=== PATIENT | female | born 1960 | race Caucasian/White ===

== ENCOUNTER 2020-05-07 08:03 | Outpatient (CLI) | payer MEDICAID, SELFPAY ==
[2020-05-07 08:30] VITALS: PULSE 74; O2SAT 96
[2020-05-07 08:35] VITALS: PULSE 95; O2SAT 86
[2020-05-07 08:40] VITALS: PULSE 92; O2SAT 88
[2020-05-07 08:45] VITALS: PULSE 75; O2SAT 90
[2020-05-07 08:50] VITALS: PULSE 72; O2SAT 95
--- NOTE | 2020-05-07 09:10 | HOMEO2EVAL ---
Home Oxygen Evaluation RC: Home Oxygen (O2) Evaluation Start: 05/07/20 09:00 Freq: ONCE Status: Active Protocol: RPE Activity Type Activity Date Activity User E-Sign Co-Sign Detail Recorded Client Recorded Date Recorded By Document 05/07/20 08:30 [email or web address] [email or web address] 05/07/20 09:07 DJO Document 05/07/20 08:35 [email or web address] [email or web address] 05/07/20 09:07 DJO Document 05/07/20 08:40 [email or web address] [email or web address] 05/07/20 09:07 DJO Document 05/07/20 08:45 [email or web address] [email or web address] 05/07/20 09:07 DJO Document 05/07/20 08:50 [email or web address] [email or web address] 05/07/20 09:07 DJO 05/07/20 05/07/20 05/07/20 08:30 08:35 08:40 Home O2 Evaluation Test Phase Resting Exercise Exercise Oxygen Delivery Room Air Room Air Nasal Cannula Oxygen Flow Rate (L/min) 1 Pulse Oximetry (90-100 %) 96 86 L 88 L Pulse Rate (60-100 beats/min) 74 95 92 Rating of Perceived Dyspnea (PD) +3 Moderate Difficulty, But Can Continue Ambulation Distance (feet) 1,300 Treatment Charges O2 Evaluation 05/07/20 05/07/20 08:45 08:50 Home O2 Evaluation Test Phase Exercise Resting Oxygen Delivery Nasal Cannula Room Air Oxygen Flow Rate (L/min) 2 Pulse Oximetry (90-100 %) 90 95 Pulse Rate (60-100 beats/min) 75 72 Rating of Perceived Dyspnea (PD) Ambulation Distance (feet) Treatment Charges
== END 2020-05-07 08:04 | disposition home or self-care (01) ==
PROVIDERS: Visit Provider Nurse Practitioner Family
DX: J44.9 Chronic obstructive pulmonary disease, unspecified (principal); R06.02 Shortness of breath
CPT/HCPCS: 99199; 94618

== ENCOUNTER 2020-06-11 09:01 | Outpatient (CLI) | payer MEDICARE, SELFPAY ==
--- NOTE | ~2020-06-11 | CT_ITS ---
EXAMINATION:CT lung screening DATE: 06/11/2020 09:31 INDICATION: Personal history of tobacco dependence. Smoker who quit 11.5 years ago with 60 pack year history. TECHNIQUE: Computed tomography (CT) of the chest was performed without intravenous contrast. Automate d exposure control and iterative reconstruction technique were employed. The dose-length product (DLP ) was 70.09 mGy-cm. COMPARISON: Chest CT 05/16/2019 FINDINGS: There is moderate emphysema. There is mild atelectasis in left upper lobe and left lower lo be and right upper lobe. No pleural effusion. The heart size is normal. There are coronary artery eric cifications. No pericardial effusion. There is mild thoracic spondylosis. IMPRESSION: 1. Lung-RADS category 1: Negative. Continue annual screening with noncontrast low-dose chest CT in 12 months. Reviewed, dictated and finalized at location B. IMPRESSION: 1. Lung-RADS category 1: Negative. Continue annual screening with noncontrast l ow-dose chest CT in 12 months.
== END 2020-06-11 09:02 | disposition home or self-care (01) ==
PROVIDERS: Visit Provider Nurse Practitioner Family
DX: Z12.2 Encounter for screening for malignant neoplasm of respiratory organs (principal); Z87.891 Personal history of nicotine dependence
CPT/HCPCS: G0297

== ENCOUNTER 2020-12-31 08:54 | Outpatient (CLI) | payer MEDICARE, MEDICAID, SELFPAY ==
--- NOTE | 2020-12-31 | EST_ITS ---
Patient Info Name: Suzanna Fofana Age: 60 years : 1960 Gender: Female Ht: 64 in Wt: 140 lbs BSA: 1.70 m2 Exam Date: 12/31/2020 10:10 AM Exam Location: [facility] Stress Patient Status: Outpatient Admit Date: 12/31/2020 Staff Ordering Physician: Valentina Coe MD Attending Provider: Valentina Coe MD Exercise Technologist: Tressa Day RDCS Exercise Physician: Wilner Fernando DO Exam Type: CA stress rebecca w NM Study Info Indications R06.02 - Shortness of breath A regadenoson stress test was performed. Summary 1. 1. Negative lexiscan stress test for ischemic ST changes by ECG criteria. 2. 2. Stable hemodynamics throughout the test. 3. 3. Nuclear scan to follow and will be reported separately. Please correlate with it. 4. 4. Patient informed of the above results. Protocol: Lexiscan Stress ECG Details Stage: REST Duration (min): 5 min : 15 sec HR (bpm): 82 SBP (mmHg): 123 DBP (mmHg): 78 Stage: REST Duration (min): 15 min : 5 sec HR (bpm): 80 SBP (mmHg): 123 DBP (mmHg): 78 Stage: STAGE 1 Duration (min): 0 min : 59 sec HR (bpm): 107 SBP (mmHg): 147 DBP (mmHg): 88 Stage: RECOVERY Duration (min): 1 min : 0 sec HR (bpm): 115 SBP (mmHg): 186 DBP (mmHg): 88 Stage: RECOVERY Duration (min): 2 min : 0 sec HR (bpm): 113 SBP (mmHg): 186 DBP (mmHg): 88 Stage: RECOVERY Duration (min): 3 min : 0 sec HR (bpm): 109 SBP (mmHg): 161 DBP (mmHg): 86 Stage: RECOVERY Duration (min): 4 min : 0 sec HR (bpm): 100 SBP (mmHg): 161 DBP (mmHg): 86 Stage: RECOVERY Duration (min): 5 min : 0 sec HR (bpm): 93 SBP (mmHg): 141 DBP (mmHg): 82 Stage: RECOVERY Duration (min): 6 min : 0 sec HR (bpm): 88 SBP (mmHg): 141 DBP (mmHg): 82 Stage: RECOVERY Duration (min): 6 min : 50 sec HR (bpm): 93 SBP (mmHg): 141 DBP (mmHg): 83 Rest HR: 80 bpm Peak HR: 117 bpm Rest Sys BP: 123 mmHg Peak Sys BP: 186 mmHg Max Pred HR: 158 bpm % Max Pred HR: 74 % Target HR: 134 bpm Max RPP: 21,762 bpm*mmHg Termination Reason: Completed protocol Cardiac Symptoms: Shortness of breath, Nausea Total Time: 1 min : 0 sec Rest Shultz BP: 78 mmHg Peak Shultz BP: 88 mmHg Total Dose: 0.4 mg Aminophylline Dose: 100 mg Resting ECG Sinus rhythm. Stress ECG No ST changes. Due to intolerable side effects of sob and nausea, patient was given Aminophylline 100 mg IV to reverse its effect. Patient felt better immediately. Arrhythmias None. Report Signatures
--- NOTE | ~2020-12-31 | NM_ITS ---
EXAMINATION: NM rebecca stress w perfusion DATE: 12/31/2020 12:33 INDICATION: Shortness of breath TECHNIQUE: Rest images were obtained following intravenous administration of 9.7 mCi Tc99m tetrofosmi n (Myoview). The patient was infused intravenously with Lexiscan (Regadenoson). Then, 30.2 mCi Tc99m tetrofosmin (Myoview) was administered intravenously, and stress images were obtained. Data was recon structed into short axis and horizontal and vertical long axis SPECT images. Gated SPECT images were also obtained. COMPARISON: None. FINDINGS: There is no definite reversible or fixed perfusion abnormality to suggest ischemia or infar ction. There is normal left ventricular chamber size, wall motion and ejection fraction. Left ventr icular ejection fraction measures 67%. IMPRESSION: 1. Normal myocardial perfusion at rest and during stress. 2. Left ventricular ejection fraction measuring 67%. Reviewed, dictated and finalized at location B.
== END 2020-12-31 08:55 | disposition home or self-care (01) ==
LOC: ANHCARD 08:59
PROVIDERS: Visit Provider Internal Medicine Critical Care Medicine
DX: J44.9 Chronic obstructive pulmonary disease, unspecified (principal); R06.02 Shortness of breath
CPT/HCPCS: 78452; 93017; A9502; J0280; J2785

== ENCOUNTER 2021-01-09 12:35 | Outpatient (CLI) | payer MEDICARE, MEDICAID, SELFPAY ==
--- NOTE | 2021-01-10 09:48 | WPDPFTINT ---
PFT Interpretation This PFT met all criteria for ATS standards and reproducibility FEV/FVC post bronchodilator 28% FEV1 24% or 0.58 liters FVC 66% or 2.05 liters No bronchodilator challenge was given TLC 141% RV 250% RV/TLC 71% DLCO 30% when adjusted for alveolar volume but not adjusted for hemoglobin Flow volume loops showed severe expiratory coving Impression: very severe airflow obstruction along with hyperinflation, air trapping and severely reduced diffusion capacity. The lack of bronchodilator challenge limits the interpretability of the this study. this pattern is suggestive of severe COPD but cannot rule out a concomitant asthma component. Clinical correlation is advised.
--- NOTE | 2021-01-10 09:51 | WPDSIXMINUTE ---
Six Minute Walk Six Minute Walk: The patients O2 sats started at 96% on her home dose of 2 liters oxygen and dropped as low as 92% Total walk distance 335.28 meters conclusion: 2 liters of oxygen per nasal cannula at rest, sleep and exertion is an appropriate dose for this patient.
== END 2021-01-09 12:36 | disposition home or self-care (01) ==
LOC: ANHPFT 12:37
PROVIDERS: Visit Provider Internal Medicine Critical Care Medicine
DX: J44.9 Chronic obstructive pulmonary disease, unspecified (principal)
CPT/HCPCS: 94375; 94618; 94726; 94729

== ENCOUNTER 2021-05-07 09:30 | Outpatient (RCR) | payer MEDICARE, MEDICAID, SELFPAY ==
--- NOTE | 2021-01-29 08:36 | PCCPR ---
Pt cxl rehab today due to not feeling well.
--- NOTE | 2021-03-15 14:48 | PCCPR ---
Heather absent today, not feeling well.
--- NOTE | 2021-03-22 11:42 | PCCPR ---
Absent Heather mary states she has been diarrhea and will not be in today.
--- NOTE | 2021-04-05 11:27 | PCCPR ---
Suzanna Patel absent today due to extreme heat.
--- NOTE | 2021-04-26 09:58 | PCCPR ---
Absent Suzanna Patel called off not feeling well today. She is feeling lightheaded and dizzy wehn she moves her head.
== END 2021-05-07 23:59 | disposition home or self-care (01) ==
LOC: ANHCPREHAB 09:30
PROVIDERS: Visit Provider Internal Medicine Critical Care Medicine
DX: J44.9 Chronic obstructive pulmonary disease, unspecified (principal)
CPT/HCPCS: 97150; G0424

== ENCOUNTER 2021-05-10 09:34 | Outpatient (RCR) | payer MEDICARE, MEDICAID, SELFPAY | END 2021-05-10 16:30 | disposition home or self-care (01) | LOC: ANHCPREHAB 09:34 | PROVIDERS: Visit Provider Internal Medicine Critical Care Medicine | DX: J44.9 Chronic obstructive pulmonary disease, unspecified (principal) | CPT/HCPCS: 97150; G0424 ==

== ENCOUNTER 2021-06-26 08:28 | Outpatient (CLI) | payer MEDICARE, MEDICAID, SELFPAY ==
--- NOTE | 2021-06-29 23:11 | WPDSIXMINUTE ---
Six Minute Walk Procedure Procedure Performed Pulmonary Stress Test (6 min walk) Six Minute Walk Six Minute Walk: DOS: 06/26/2021 REQUESTING: Dr Coe REASON FOR TESTING : COPD; post cardiopulmonary rehab. SIX MINUTE WALK This test was conducted per ATS guidelines. The patient performed this walk study wearing oxygen at 2 L/min which is her usual home amount. The initial saturation is 99%. The pulse is 78. The patient walked for 6 minutes without stopping. Saturation remained 98% to 100%. Pulse ranged from 78 to 95 beats per minute. Distance walked was 365.7 meters, 1200 feet. This is 30 meters more than she walked on a Six Minute Walk on January 09, 2021. IMPRESSION: This study shows that she walked 30 meters more compared to the Six Minute Walk before cardiopulmonary rehab. Saturation is 99% on 2 L/min. Consider repeat testing off supplemental O2.
== END 2021-06-26 08:29 | disposition home or self-care (01) ==
PROVIDERS: Visit Provider Internal Medicine Critical Care Medicine
DX: J44.9 Chronic obstructive pulmonary disease, unspecified (principal); R06.02 Shortness of breath
CPT/HCPCS: 94618

== ENCOUNTER 2021-07-10 17:45 | Inpatient (IN) | payer MEDICARE, MEDICAID, SELFPAY ==
[2021-07-10] VITALS (15 sets, daily range): BP systolic 100–140; BP diastolic 83–95; PULSE 103–160; RESP 17–40; TEMP 36–36.6; O2SAT 92–100; BMI 23.5
--- NOTE | ~2021-07-10 | CT_ITS ---
EXAMINATION: CTA chest PE protocol EXAM DATE: 07/11/2021 08:20 INDICATION: Tachycardia, shortness of breath. TECHNIQUE: Spiral CTA of the chest (pulmonary arteries) was performed with 100 cc Omnipaque 350 intr avenous contrast injection. Images were acquired during the pulmonary arterial phase. Coronal maxi mum intensity projection 3D-reconstructions were created by the technologist on dedicated workstation . Axial, coronal and sagittal reformatted images were reviewed. The dose-length product (DLP) for t his examination was 257.42 mGy-cm. The exposure was tailored according to patient size (auto mA exp osure control), and iterative reconstruction (ASIR) was used as additional dose reduction technique. Comparison is made to prior examination from 06/11/2020. FINDINGS: Pulmonary arteries are well opacified and without intraluminal filling defects. No thora cic aortic dissection. There is moderate emphysema. There are no pleural or pericardial effusions. Tracheobronchial tree is patent. There is no mediastinal, hilar or axillary lymphadenopathy. Th ere is no pneumothorax. Heart normal in size. There is mild coronary arterial calcification, darlin rial sclerosis. Upper abdomen is unremarkable. There is thoracic spondylosis without osteoblastic or osteolytic lesions identified. IMPRESSION: 1. No pulmonary emboli or acute cardiopulmonary findings. 2. Moderate chronic emphysema. Reviewed, dictated and finalized at location B.
--- NOTE | ~2021-07-10 | XR_ITS ---
XR chest 1V portable DATE: 07/10/2021 18:15 INDICATION: Shortness of breath, cough. History of COPD. Smoker. TECHNIQUE: Portable upright AP view on 06/20/2021 at 1812 hours COMPARISON: 06/11/2020 CT lung screening FINDINGS: Bilateral hyperinflation, consistent with history of COPD. No pulmonary infiltrate or conso lidation, pleural effusion or pulmonary vascular congestion or pneumothorax. Normal heart size. Diffuse osteopenia. IMPRESSION: Bilateral hyperinflation consistent with COPD Reviewed, dictated and finalized at location A.
--- NOTE | ~2021-07-10 | XR_ITS ---
EXAMINATION: XR chest 1V portable EXAM DATE: 07/12/2021 09:55 INDICATION: Dyspnea. TECHNIQUE: Portable AP frontal chest x-ray was obtained. Comparison is made to prior examination from 07/10/2021. FINDINGS: The lungs are hyperinflated which can be seen with chronic obstructive pulmonary disease (a clinical diagnosis of functional impairment), but is not diagnostic of it. No confluent consolidatio n, pneumothorax or pleural effusion suspected. Cardiomediastinal silhouette is normal. There are no osseous abnormalities identified. IMPRESSION: Hyperinflation unchanged. Reviewed, dictated and finalized at location B. IMPRESSION: Hyperinflation unchanged.
[2021-07-10] MEDS: ALBUTEROL SULFATE NEB 2.5 MG/0.5 ML INH 15 MG INHALATION (18:05)
--- NOTE | 2021-07-10 18:05 | ECG_ITS ---
Measurements Intervals [place] Rate: 143 P: 70 HI: 128 QRS: 71 QRSD: 82 T: 70 QT: 288 QTc: 445 Interpretive Statements SINUS OR ECTOPIC ATRIAL TACHYCARDIA BASELINE ARTIFACT- I, II, III, AVR, AVL, AVF, V1-V6 ABNORMAL ECG Electronically Signed On 07-10-2021 20:04:03 CDT by Wilner Fernando D.O.
--- NOTE | 2021-07-10 18:06 | ECG_ITS ---
Measurements Intervals [place] Rate: 146 P: 74 NH: 115 QRS: 76 QRSD: 84 T: 83 QT: 291 QTc: 454 Interpretive Statements SINUS OR ECTOPIC ATRIAL TACHYCARDIA BASELINE ARTIFACT- I, II, III, AVR, AVL, AVF, V1-V6 ABNORMAL ECG Electronically Signed On 07-10-2021 20:03:04 CDT by Wilner Fernando D.O.
[2021-07-10 18:38] LABS: Basophils Percent Auto 0.2 % (0.2-1.2); Eosinophils Absolute Auto 0.1 K/mm3 (0-0.3); Eosinophils Percent Auto 0.6 % (0-4.4); Hematocrit 41.3 % (37.0-47.0); Immature Granulocyte Absolute 0.02 K/mm3 (0.00-0.031); Immature Granulocyte Percent A 0.2 % (0-0.5); Lymphocytes Absolute Auto 2.59 K/mm3 (0.9-3.2); Lymphocytes Percent Auto 30.3 % (18.3-44.2); Mean Corpuscular HGB Conc 33.9 g/dl (32-36); Mean Corpuscular Hemoglobin 32.3 pg (26-34); Mean Corpuscular Volume 95.4 fl (80-100); Mean Platelet Volume 8.7 fl (7.4-10.4); Monocytes Absolute Auto 0.5 K/mm3 (0.1-0.6); Neutrophils Absolute Auto 5.4 K/mm3 (1.3-6.7); Neutrophils Percent Auto 62.7 % (45.5-73.1); Platelet Count Result 342 k/mm3 (150-375); Red Blood Count 4.33 M/mm3 (4.2-5.4); Red Cell Distribution Width 12.1 % (11.5-14.5); White Blood Count 8.5 K/mm3 (4.5-10.0)
[2021-07-10 18:40] LABS: Anion Gap 13 mmol/L (8-16); Blood Urea Nitrogen 12 mg/dL (7-17); Calcium 8.9 mg/dL (8.4-10.2); Carbon Dioxide 22 mmol/L (22-30); Chloride 99 mmol/L (98-107); Estimated CRCL calculation 71 ml/min; Estimated Glomerular Filt Rate > 60; Glucose 290 mg/dL (65-110); Potassium 4.1 mmol/L (3.4-5.0); Sodium 134 mmol/L (137-145)
[2021-07-10 18:53] LABS: NT Pro B Type Natriuretic Pept 130 pg/mL (5-100); Troponin I < 0.012 ng/mL (0.000-0.034)
--- NOTE | 2021-07-10 19:16 | ECG_ITS ---
Measurements Intervals [place] Rate: 136 P: ID: 0 QRS: -19 QRSD: 85 T: 91 QT: 303 QTc: 457 Interpretive Statements SINUS TACHYCARDIA BORDERLINE R WAVE PROGRESSION, ANTERIOR LEADS BORDERLINE ST-T WAVE ABNORMALITY- HIGH LATERAL LEADS BASELINE ARTIFACT- I, II, III, AVR, AVL, AVF, V1-V6 ABNORMAL ECG Electronically Signed On 07-17-2021 13:12:06 CDT by Wilner Fernando D.O.
[2021-07-10] MEDS: IPRATROPIUM BR 0.02% INH SOLN 0.5 MG/2.5 ML VIAL INHALATION (19:17)
--- NOTE | 2021-07-10 20:49 | ED.SOB ---
HPI - SOB/Dyspnea General Chief Complaint: Shortness of Breath/Dyspnea Stated Complaint: DIFFICULTY BREATHING Time Seen by Provider: 07/10/21 17:56 Source: patient Mode of arrival: EMS Limitations: clinical condition History of Present Illness HPI Narrative: 60-year-old female History of COPD Use home oxygen 1 day history of increased dyspnea She denies a fever she denies a cough She is not having any chest pain She is used her nebulizers at home without relief Related Data Home Medications Medication Instructions Recorded Confirmed ascorbate calcium (vitamin C) 500 500 mg PO DAILY 11/21/20 04/09/21 mg tablet Allergies Allergy/AdvReac Type Severity Reaction Status Date / Time No Known Allergies Allergy Verified 07/10/21 18:07 Review of Systems Review of Systems: ROS unobtainable: Yes unobtainable due to medical condition Constitutional: Constitutional: Denies fever(s) Cardiovascular: Cardiovascular: Denies chest pain Respiratory: Respiratory: Reports dyspnea and Reports wheezing Gastrointestinal: Gastrointestinal: Denies vomiting [facility] Past Medical History Medical History Family history of early CAD History of tobacco use Laryngitis Family History Family History Father Family history of cardiovascular disease Acute myocardial infarction, Onset Age: 60 Sibling Family history of cardiovascular disease Acute myocardial infarction, Onset Age: 44 Cerebrovascular accident Diabetes mellitus Mother Family history of malignant neoplasm Family history of malignant neoplasm of breast in first degree relative, Onset Age: 74 Cerebrovascular accident Social History Social History Smoking packs per day: 1.5 Smoking cigarettes per day: 30.0 Years smoked: 30 Smoking pack-years: 45.00 Smoking status: Former smoker Tobacco type: cigarettes Second hand tobacco smoke exposure: No Smoking end date: 10/19/08 Alcohol intake: current Gender identity (if verbalized by the patient): Female Exam Const: General: cooperative, alert and ill appearing Nutritional Appearance: thin Orientation/consciousness: patient oriented x3 (alert) HENMT: Head: normal to inspection, normocephalic and atraumatic Ears: external ears normal General nose exam: no epistaxis Eyes: Conjunctivae: conjunctivae normal EOM: EOMs intact bilaterally Neck: Neck: normal visual inspection, supple and no JVD Resp: Effort & Inspection: labored and tachypneic Auscultation: no rales, no rhonchi, no wheezes and other (BS =) Other: Breath sounds are diminished throughout both lungs with some wheezes Cardio: Rate: tachycardic Rhythm: regular rhythm Heart sounds: no murmurs GI: GI Palp: Yes Soft to palpation and No Tenderness to palpation present (GI) Skin: General skin exam: normal color and no rashes or lesions noted Neuro: General: patient oriented x3 (alert) and moves all extremities Speech: normal speech Extrem: General: normal to inspection and no pedal edema Psych: Affect: Anxious affect present Course Course Emergency Course: She responded well to hour-long nebulizer and steroids and fluids Much less tachycardic with a heart rate in the 110s, sats 100% on 2 L Discussed with hospitalist for admission, ordered ABG for them Vital Signs Vital signs: Vital Signs Temperature 36.0 C L 07/10/21 17:46 Pulse Rate 160 H 07/10/21 17:46 Respiratory Rate 40 H 07/10/21 17:46 Blood Pressure 140/88 07/10/21 17:46 Pulse Oximetry 92 07/10/21 17:46 Temperature 36.0 C L 07/10/21 17:46 Pulse Rate 130 H 07/10/21 20:06 Respiratory Rate 27 H 07/10/21 20:06 Blood Pressure 104/84 07/10/21 20:06 Pulse Oximetry 98 07/10/21 20:06 MDM - SOB/Dyspnea Lab Data Result diagrams: 07/10/21 18:18
[2021-07-10] MEDS: LACTATED RINGERS 1,000 ML 999 ML IV CONT (21:15)
[2021-07-10 21:29] LABS: Alveolar/Arterial O2 Gradient 65.8 mmHg; Base Excess ABG -2.7 mEq/l (+/-2.0); Device NASAL CANNULA; Fractional Inspired Oxygen 28 %; HCO3 ABG 21.3 mEq/l (22.0-26.0); Modified Allen's Test Pass; Oxygen Content ABG 18.3 %vol (16.0-22.0); Oxygen Saturation ABG 97.2 % (95.0-100.0); Oxyhemoglobin 96.1 % THb (90.0-100.0); PCO2 ABG 34.8 mmHg (35.0-45.0); PO2 ABG 92.8 mmHg (80.0-100.0); PO2 FiO2 Ratio Arterial Blood 3.31 %; Site Drawn RIGHT RADIAL; Total Hemoglobin 13.5 g/dL (12.0-18.0); pH ABG 7.405 (7.350-7.450)
--- NOTE | 2021-07-10 23:15 | ADMGEN ---
This patient, Suzanna Fofana, was admitted to [facility] Surg Room 301-01. Patient/family oriented to hospital policies and general routines including ID bracelet, bed and alarms, visiting hours, pain management, procedures, bathroom and other care routines, personal items, smoking policy, room service/diet, and visiting hours. Information on how to activate the Rapid Response Team has been discussed. Patient/Family are encouraged to report perceived risks to care and to ask questions if they do not understand what they are told or what they should do.
[2021-07-11] VITALS (19 sets, daily range): BP systolic 87–116; BP diastolic 60–85; PULSE 87–128; RESP 12–28; TEMP 35.8–36.9; O2SAT 94–100
[2021-07-11] MEDS: IPRATROPIUM BR 0.02% INH SOLN 0.5 MG/2.5 ML VIAL INHALATION ×2 (00:06→20:23)
[2021-07-11] MEDS: ALBUTEROL SULFATE NEB 2.5 MG/0.5 ML INH 5 MG INHALATION (00:06)
[2021-07-11] MEDS: LORazepam (*CRX) 0.5 MG TABLET PO ×2 (00:13→06:06)
--- NOTE | 2021-07-11 00:57 | PM.IMHP ---
H&P: HPI History of Present Illness Date/Time: 07/11/21 00:57 Chief Complaint: shortness of breath Narrative: 60-year-old femaleWith history of COPD on home oxygen 2 L continuous presents increasing shortness of breath since past few days. She denies any cough or fever. She also has no chest pain. She has been using her nebulizer at home without relief. after being admitted rapid response was called due to increased shortness of breath and distress after she got up to go to the commode. He got stabilized after getting a breathing treatment. He denied at any chest pain during that period. She had a Lexiscan done 12/2020 which was negative. PFT with very severe airflow obstruction along with hyperinflation, air trapping and severely reduced diffusion capacity suggestive of severe COPD. Done in 12/2020. She has COVID vaccinated Review of Systems Review of Systems: - CONSTITUTIONAL: Denies weight loss, fever and chills. - HEENT: Denies changes in vision and hearing - RESPIRATORY: reports SOB and denies cough. - CV: Denies palpitations and CP. - GI: Denies abdominal pain, nausea, vomiting and diarrhea. - : Denies dysuria and urinary frequency. - MSK: Denies myalgia and joint pain. - SKIN: Denies rash and pruritus. - NEUROLOGICAL: Denies headache and syncope. - PSYCHIATRIC: Denies recent changes in mood. Denies anxiety and depression. All systems reviewed & are unremarkable except as noted in HPI and below Constitutional: Constitutional: Reports fatigue and Reports weakness Neurologic: Reports weakness Endocrine: Endocrine: Reports fatigue [facility] Past Medical History Medical History Family history of early CAD History of tobacco use Laryngitis Family History Family History Father Family history of cardiovascular disease Acute myocardial infarction, Onset Age: 60 Sibling Family history of cardiovascular disease Acute myocardial infarction, Onset Age: 44 Cerebrovascular accident Diabetes mellitus Mother Family history of malignant neoplasm Family history of malignant neoplasm of breast in first degree relative, Onset Age: 74 Cerebrovascular accident Social History Social History Smoking packs per day: 2 Smoking cigarettes per day: 40.0 Years smoked: 33 Smoking pack-years: 66.00 Smoking status: Former smoker Tobacco type: cigarettes Second hand tobacco smoke exposure: No Smoking end date: 10/19/08 Alcohol intake: current Drinks per week: 4 Substance use type: does not use Gender identity (if verbalized by the patient): Female Spiritual care concerns: No Meds Home Medications and Allergies Home Medications Medication Instructions Recorded Confirmed Type tiotropium bromide 2.5 2 puff INHALATION QAM #4 g 11/27/20 07/10/21 Rx mcg/actuation mist for inhalation budesonide-formoterol HFA 80 2 puff INHALATION Q12H #10.2 gm 12/19/20 07/10/21 Rx mcg-4.5 mcg/actuation aerosol inhaler albuterol sulfate 2.5 mg INHALATION QID PRN #360 ml 04/09/21 07/10/21 Rx fluoxetine 40 mg PO DAILY 07/10/21 07/10/21 History efhwneam-mdc-pcz C-herb no.124 4 tablet PO DAILY 07/10/21 07/10/21 History [Airborne Gummy] Allergies Allergy/AdvReac Type Severity Reaction Status Date / Time No Known Allergies Allergy Verified 07/10/21 18:07 Vital Signs Vital Signs - 24 hr 07/10/21 17:46 07/10/21 18:01 07/10/21 18:03 Temperature 96.8 F L Pulse Rate 160 H 145 H Respiratory Rate 40 H Blood Pressure 140/88 Pulse Oximetry 92 96 07/10/21 18:12 07/10/21 18:37 07/10/21 19:12 Temperature Pulse Rate 137 H 134 H 137 H Respiratory Rate 28 H 24 H 17 Blood Pressure 100/83 111/84 Pulse Oximetry 100 97 07/10/21 19:17 07/10/21 19:18 07/10/21 19:24 Temperature Pulse Rate 145 H
--- NOTE | 2021-07-11 02:26 | PC.NURSE ---
Addendum entered by Caroline Bearden RN 07/11/21 02:37: 0013: LORAZEPAM PO GIVEN Original Note: 07/10/21 @ 2315: ADMISSION ASSESSMENT COMPLETE. PT WEANED FROM 8LPM HF NC T 4LPM WHILE RN PRESENT. SPO2 98%. PT PRACTICING PURSED LIPPED BREATHING AND SEATED IN BED IN TRIPOD POSITION IN MILD RESP DISTRESS AND ABLE TO BE CONVERSANT DURING ASSESSMENT/INTERVIEW. 2355: PT USED BEDSIDE COMMODE TO VOID AND EXPERIENCED INCREASED SOB AND ANXIETY. SPO2 94 % ON 4LPM HFNC. 2358: RAPID RESPONSE CALLED. RR TEAM HERE. NEB TX GIVEN. DR. LANE HERE. RCT HERE AND NEB TX DONE ON 8LPM O2. HOUSE SUP. DEE DEE PIERCE HERE. 0000:PLACED ON TELE W/ CONT PULSE OX. HFNC WEANED DOWN TO 4LPM BY RCT. SPO2 100. LORAZEPAM PO ORDERED AND GIVEN FOR ANXIETY REASSURANCE GIVEN. 0100: PT SLEEPING. RESTFUL. SPO2 100 ON 4LPM HFNC. HR 100.
--- NOTE | 2021-07-11 08:05 | P.PNIM_ITS ---
Progress Note: A&P Assessment and Plan (1) Bronchospasm, acute: Code(s): J98.01 - Acute bronchospasm Status: Acute Assessment and Plan: * Patient stated this start with running out of oxygen and walking to the car * Car was hot * Short of breath since then * NO cough, wheezes, or sputum changes * Switch Decadron to Solumedrol reassess tomorrow * Supplemental oxygen (2) Acute and chronic respiratory failure with hypoxia: Code(s): J96.21 - Acute and chronic respiratory failure with hypoxia Status: Acute Assessment and Plan: * Unlikely a COPD Exacerbation from the patient history * No cough or sputum changes noted * No wheezes noted * Talked case over with Dr. Rudolph, and together determined leading more to brochiospasms * Decadron 10mg IV daily, changed to Solumedrol 40mg IV Q6hr * BNP 130 * Chest xray:Bilateral hyperinflation consistent with COPD * Albuterol and atrovent neb * Symicort 2 puff BID * Spirvia 1 puff daily * Supplemental oxygen wean to maintain saturations greater than 90% * 2L NC at home * Six minute walk test showed 99% on 2LNC (06/26/21) * Sees Dr. Coe * PFT 01/10/21: FEV1 24%, FVC 66%- Showed very serve airflow obstruction with hyperinflation, air trapping and reduced capacity. (3) COPD, severe: Code(s): J44.9 - Chronic obstructive pulmonary disease, unspecified Status: Acute Assessment and Plan: * History of COPD * Chronic oxygen 2LNC * Probably not exacerbation given no cough, wheezes or sputum (4) COPD exacerbation: Code(s): J44.1 - Chronic obstructive pulmonary disease with (acute) exacerbation Status: Acute Assessment and Plan: * Probably not COPD exacerbation at this time * See above (5) History of tobacco use: Code(s): Z87.891 - Personal history of nicotine dependence Status: Acute Assessment and Plan: * Was a 1.5 ppd smoker for 30 years * Quit 10/19/08 (6) Sinus tachycardia: Code(s): R00.0 - Tachycardia, unspecified Status: Acute Assessment and Plan: * ST with rate of 146 * could be reactive from hypoxic respiratory failure however * need to rule out PE * Could be breathing and anxiety induced * Tele monitor * Change albuterol to Xopenex for now * Will check D. Dimer * CTA ordered * Consider metoprolol for rate control * Consider cardiology consult (7) Hyperglycemia: Code(s): R73.9 - Hyperglycemia, unspecified Status: Acute Assessment and Plan: * Glucose on arrival 290 * A1c ordered and pending * Could be steroid induced * Insulin sliding scale * Accu checks AC/HS * Trend labs * Hypoglycemia protocol (8) Anxiety: Code(s): F41.9 - Anxiety disorder, unspecified Status: Acute Assessment and Plan: * Continue home fluoxetine 40mg PO daily * Lorazepam 0.5mg PO Q6hr PRN * Trend symptoms Time Spent With Patient Time with patient: 25 - 35 minutes Subjective Date/time seen: 07/11/21 08:05 Interval history: Patient is 60-year-old female here for increased shortness of breath. Patient stated that it all started yesterday. Patient stated that she was leaving work when her portable oxygen tank ran out and she walked to the car got into the hot car and that is when she started having worsening shortness of breath. When she walked to the car
--- NOTE | 2021-07-11 08:05 | PM.IMPN ---
Progress Note: A&P Assessment and Plan (1) Bronchospasm, acute: Code(s): J98.01 - Acute bronchospasm Status: Acute Assessment and Plan: Patient stated this start with running out of oxygen and walking to the car Car was hot Short of breath since then NO cough, wheezes, or sputum changes Switch Decadron to Solumedrol reassess tomorrow Supplemental oxygen (2) Acute and chronic respiratory failure with hypoxia: Code(s): J96.21 - Acute and chronic respiratory failure with hypoxia Status: Acute Assessment and Plan: Unlikely a COPD Exacerbation from the patient history No cough or sputum changes noted No wheezes noted Talked case over with Dr. Rudolph, and together determined leading more to brochiospasms Decadron 10mg IV daily, changed to Solumedrol 40mg IV Q6hr BNP 130 Chest xray:Bilateral hyperinflation consistent with COPD Albuterol and atrovent neb Symicort 2 puff BID [place] 1 puff daily Supplemental oxygen wean to maintain saturations greater than 90% 2L NC at home Six minute walk test showed 99% on 2LNC (06/26/21) Sees Dr. Coe PFT 01/10/21: FEV1 24%, FVC 66%- Showed very serve airflow obstruction with hyperinflation, air trapping and reduced capacity. (3) COPD, severe: Code(s): J44.9 - Chronic obstructive pulmonary disease, unspecified Status: Acute Assessment and Plan: History of COPD Chronic oxygen 2LNC Probably not exacerbation given no cough, wheezes or sputum (4) COPD exacerbation: Code(s): J44.1 - Chronic obstructive pulmonary disease with (acute) exacerbation Status: Acute Assessment and Plan: Probably not COPD exacerbation at this time See above (5) History of tobacco use: Code(s): Z87.891 - Personal history of nicotine dependence Status: Acute Assessment and Plan: Was a 1.5 ppd smoker for 30 years Quit 10/19/08 (6) Sinus tachycardia: Code(s): R00.0 - Tachycardia, unspecified Status: Acute Assessment and Plan: ST with rate of 146 could be reactive from hypoxic respiratory failure however need to rule out PE Could be breathing and anxiety induced Tele monitor Change albuterol to Xopenex for now Will check D. Dimer CTA ordered Consider metoprolol for rate control Consider cardiology consult (7) Hyperglycemia: Code(s): R73.9 - Hyperglycemia, unspecified Status: Acute Assessment and Plan: Glucose on arrival 290 A1c ordered and pending Could be steroid induced Insulin sliding scale Accu checks AC/HS Trend labs Hypoglycemia protocol (8) Anxiety: Code(s): F41.9 - Anxiety disorder, unspecified Status: Acute Assessment and Plan: Continue home fluoxetine 40mg PO daily Lorazepam 0.5mg PO Q6hr PRN Trend symptoms Time Spent With Patient Time with patient: 25 - 35 minutes Subjective Date/time seen: 07/11/21 08:05 Interval history: Patient is 60-year-old female here for increased shortness of breath. Patient stated that it all started yesterday. Patient stated that she was leaving work when her portable oxygen tank ran out and she walked to the car got into the hot car and that is when she started having worsening shortness of breath. When she walked to the car she said she did not have any O2 which she chronically wears 2 L of O2 all times. since then she has been having sweats, nausea, weakness, fatigue, and hard time catching her breath. Patient stated that she is not even able to go to the bathroom which she can do normally without any problems. Patient denies cough with any kind of sputum production. She explained that she does not know what exacerbated or caused her to become very short of breath. She does admit to taking all of her medications when she is post 2 and that her appetite has been lacking since all this started.
[2021-07-11 08:59] LABS: Basophils Percent Auto 0.2 % (0.2-1.2); Hematocrit 35.5 % (37.0-47.0); Hemoglobin 12.3 g/dL (12.0-15.0); Immature Granulocyte Percent A 1.7 % (0-0.5); Lymphocytes Absolute Auto 0.71 K/mm3 (0.9-3.2); Mean Corpuscular HGB Conc 34.6 g/dl (32-36); Mean Corpuscular Hemoglobin 31.9 pg (26-34); Mean Platelet Volume 8.9 fl (7.4-10.4); Monocytes Absolute Auto 0.4 K/mm3 (0.1-0.6); Monocytes Percent Auto 6.3 % (2.6-8.5); Neutrophils Absolute Auto 4.7 K/mm3 (1.3-6.7); Neutrophils Percent Auto 79.8 % (45.5-73.1); Platelet Count Result 263 k/mm3 (150-375); Red Blood Count 3.86 M/mm3 (4.2-5.4); Red Cell Distribution Width 12.1 % (11.5-14.5); White Blood Count 5.9 K/mm3 (4.5-10.0)
[2021-07-11] MEDS: FLUoxetine HCL 20 MG CAPSULE 40 MG PO (09:02)
[2021-07-11 09:07] LABS: Hemoglobin A1C 5.1 % (<5.7)
[2021-07-11 09:15] LABS: D Dimer 0.49 ug/mL (<0.48)
[2021-07-11] MEDS: BUDESONIDE/FORMOTEROL 80/4.5 MCG 6.9 GM INHALER (*SP) 2 PUFF INHALATION ×2 (09:16→20:24)
[2021-07-11 09:50] LABS: Alanine Aminotransferase 22 U/L (4-35); Albumin Level 3.8 g/dL (3.5-5.1); Alkaline Phosphatase 57 U/L (38-126); Anion Gap 9 mmol/L (8-16); Aspartate Amino Transferase 27 U/L (14-36); Bilirubin,Total 0.2 mg/dL (0.2-1.3); Blood Urea Nitrogen 12 mg/dL (7-17); Calcium 9.2 mg/dL (8.4-10.2); Carbon Dioxide 24 mmol/L (22-30); Chloride 99 mmol/L (98-107); Estimated CRCL calculation 84 ml/min; Estimated Glomerular Filt Rate > 60; Glucose 130 mg/dL (65-110); Potassium 4.5 mmol/L (3.4-5.0); Sodium 132 mmol/L (137-145)
[2021-07-11] MEDS: methylPREDNISolone SOD SUCC 40 MG VIAL IV PUSH ×2 (12:25→17:13)
[2021-07-11] MEDS: ACETAMINOPHEN 325 MG TABLET 650 MG PO (14:54)
[2021-07-11 16:53] LABS: Glucose Point of Care 128 mg/dl (65-105)
[2021-07-11 17:06] LABS: SARS-CoV-2 RNA PCR Negative
[2021-07-11 21:34] LABS: Glucose Point of Care 145 mg/dl (65-105)
[2021-07-12] VITALS (15 sets, daily range): BP systolic 96–109; BP diastolic 56–61; PULSE 77–106; RESP 12–20; TEMP 36.1–36.7; O2SAT 88–100
[2021-07-12] MEDS: methylPREDNISolone SOD SUCC 40 MG VIAL IV PUSH ×3 (00:41→11:45)
[2021-07-12] MEDS: IPRATROPIUM BR 0.02% INH SOLN 0.5 MG/2.5 ML VIAL INHALATION ×3 (02:28→14:09)
[2021-07-12 06:15] LABS: Basophils Percent Auto 0.1 % (0.2-1.2); Hematocrit 36.9 % (37.0-47.0); Hemoglobin 12.7 g/dL (12.0-15.0); Immature Granulocyte Absolute 0.07 K/mm3 (0.00-0.031); Immature Granulocyte Percent A 0.8 % (0-0.5); Lymphocytes Absolute Auto 0.45 K/mm3 (0.9-3.2); Lymphocytes Percent Auto 5.2 % (18.3-44.2); Mean Corpuscular HGB Conc 34.4 g/dl (32-36); Mean Corpuscular Volume 92.9 fl (80-100); Monocytes Absolute Auto 0.3 K/mm3 (0.1-0.6); Monocytes Percent Auto 2.9 % (2.6-8.5); Neutrophils Absolute Auto 7.9 K/mm3 (1.3-6.7); Platelet Count Result 285 k/mm3 (150-375); Red Blood Count 3.97 M/mm3 (4.2-5.4); Red Cell Distribution Width 11.9 % (11.5-14.5); White Blood Count 8.7 K/mm3 (4.5-10.0)
[2021-07-12 06:28] LABS: Alanine Aminotransferase 23 U/L (4-35); Albumin Level 3.9 g/dL (3.5-5.1); Alkaline Phosphatase 57 U/L (38-126); Anion Gap 7 mmol/L (8-16); Aspartate Amino Transferase 31 U/L (14-36); Bilirubin,Total 0.1 mg/dL (0.2-1.3); Blood Urea Nitrogen 16 mg/dL (7-17); Calcium 9.2 mg/dL (8.4-10.2); Carbon Dioxide 26 mmol/L (22-30); Chloride 102 mmol/L (98-107); Estimated CRCL calculation 71 ml/min; Estimated Glomerular Filt Rate > 60; Glucose 154 mg/dL (65-110); Magnesium 2.3 mg/dL (1.6-2.3); Potassium 3.9 mmol/L (3.4-5.0); Sodium 135 mmol/L (137-145)
[2021-07-12] MEDS: FLUoxetine HCL 20 MG CAPSULE 40 MG PO (08:06)
[2021-07-12] MEDS: ENOXAPARIN 40 MG/0.4 ML SYRINGE SUB-Q (08:06)
[2021-07-12 08:11] LABS: Glucose Point of Care 150 mg/dl (65-105)
[2021-07-12] MEDS: ALBUTEROL SULFATE NEB 2.5 MG/0.5 ML INH 5 MG INHALATION ×2 (08:14→14:09)
[2021-07-12] MEDS: BUDESONIDE/FORMOTEROL 80/4.5 MCG 6.9 GM INHALER (*SP) 2 PUFF INHALATION (08:17)
[2021-07-12] MEDS: LORazepam (*CRX) 0.5 MG TABLET PO (08:47)
[2021-07-12 11:59] LABS: Glucose Point of Care 156 mg/dl (65-105)
--- NOTE | 2021-07-12 13:37 | P.DS_ITS ---
DS: Admitting Diagnosis Discharge Date Date of service 07/12/21 at 1338 Admitting Diagnosis Bronchiospasm DS: Discharge Diagnosis Discharge Diagnosis (1) Bronchospasm, acute: Code(s): J98.01 - Acute bronchospasm Status: Acute Assessment and Plan: * Patient stated this start with running out of oxygen and walking to the car * Car was hot * Short of breath since then * NO cough, wheezes, or sputum changes * Switch Decadron to Solumedrol reassess tomorrow * Supplemental oxygen (2) Acute and chronic respiratory failure with hypoxia: Code(s): J96.21 - Acute and chronic respiratory failure with hypoxia Status: Acute Assessment and Plan: * Unlikely a COPD Exacerbation from the patient history * No cough or sputum changes noted * No wheezes noted * Talked case over with Dr. Rudolph, and together determined leading more to brochiospasms * Decadron 10mg IV daily, changed to Solumedrol 40mg IV Q6hr * BNP 130 * Chest xray:Bilateral hyperinflation consistent with COPD * Albuterol and atrovent neb * Symicort 2 puff BID * [place] 1 puff daily * Supplemental oxygen wean to maintain saturations greater than 90% * 2L NC at home * Six minute walk test showed 99% on 2LNC (06/26/21) * Sees Dr. Coe * PFT 01/10/21: FEV1 24%, FVC 66%- Showed very serve airflow obstruction with hyperinflation, air trapping and reduced capacity. (3) COPD, severe: Code(s): J44.9 - Chronic obstructive pulmonary disease, unspecified Status: Acute Assessment and Plan: * History of COPD * Chronic oxygen 2LNC * Probably not exacerbation given no cough, wheezes or sputum (4) COPD exacerbation: Code(s): J44.1 - Chronic obstructive pulmonary disease with (acute) exacerbation Status: Acute Assessment and Plan: * Probably not COPD exacerbation at this time * See above (5) History of tobacco use: Code(s): Z87.891 - Personal history of nicotine dependence Status: Acute Assessment and Plan: * Was a 1.5 ppd smoker for 30 years * Quit 10/19/08 (6) Sinus tachycardia: Code(s): R00.0 - Tachycardia, unspecified Status: Acute Assessment and Plan: * ST with rate of 146 * could be reactive from hypoxic respiratory failure however * need to rule out PE * Could be breathing and anxiety induced * Tele monitor * Change albuterol to Xopenex for now * Will check D. Dimer * CTA ordered * Consider metoprolol for rate control * Consider cardiology consult (7) Hyperglycemia: Code(s): R73.9 - Hyperglycemia, unspecified Status: Acute Assessment and Plan: * Glucose on arrival 290 * A1c ordered and pending * Could be steroid induced * Insulin sliding scale * Accu checks AC/HS * Trend labs * Hypoglycemia protocol (8) Anxiety: Code(s): F41.9 - Anxiety disorder, unspecified Status: Acute Assessment and Plan: * Continue home fluoxetine 40mg PO daily * Lorazepam 0.5mg PO Q6hr PRN * Trend symptoms DS: Summary Hospital Course Hospital Course: Patient is a 60 year old female with a past medical history of COPD, anxiety, and tobacco abuse that presented to the ED with shortness of breath. Since admission patient has not had any wheezes, cough, sputum production. She has been very short of breath, which she associated wit
--- NOTE | 2021-07-12 13:37 | PM.DS ---
DS: Admitting Diagnosis Discharge Date Date of service 07/12/21 at 1338 Admitting Diagnosis Bronchiospasm DS: Discharge Diagnosis Discharge Diagnosis (1) Bronchospasm, acute: Code(s): J98.01 - Acute bronchospasm Status: Acute Assessment and Plan: Patient stated this start with running out of oxygen and walking to the car Car was hot Short of breath since then NO cough, wheezes, or sputum changes Switch Decadron to Solumedrol reassess tomorrow Supplemental oxygen (2) Acute and chronic respiratory failure with hypoxia: Code(s): J96.21 - Acute and chronic respiratory failure with hypoxia Status: Acute Assessment and Plan: Unlikely a COPD Exacerbation from the patient history No cough or sputum changes noted No wheezes noted Talked case over with Dr. Rudolph, and together determined leading more to brochiospasms Decadron 10mg IV daily, changed to Solumedrol 40mg IV Q6hr BNP 130 Chest xray:Bilateral hyperinflation consistent with COPD Albuterol and atrovent neb Symicort 2 puff BID [place] 1 puff daily Supplemental oxygen wean to maintain saturations greater than 90% 2L NC at home Six minute walk test showed 99% on 2LNC (06/26/21) Sees Dr. Coe PFT 01/10/21: FEV1 24%, FVC 66%- Showed very serve airflow obstruction with hyperinflation, air trapping and reduced capacity. (3) COPD, severe: Code(s): J44.9 - Chronic obstructive pulmonary disease, unspecified Status: Acute Assessment and Plan: History of COPD Chronic oxygen 2LNC Probably not exacerbation given no cough, wheezes or sputum (4) COPD exacerbation: Code(s): J44.1 - Chronic obstructive pulmonary disease with (acute) exacerbation Status: Acute Assessment and Plan: Probably not COPD exacerbation at this time See above (5) History of tobacco use: Code(s): Z87.891 - Personal history of nicotine dependence Status: Acute Assessment and Plan: Was a 1.5 ppd smoker for 30 years Quit 10/19/08 (6) Sinus tachycardia: Code(s): R00.0 - Tachycardia, unspecified Status: Acute Assessment and Plan: ST with rate of 146 could be reactive from hypoxic respiratory failure however need to rule out PE Could be breathing and anxiety induced Tele monitor Change albuterol to Xopenex for now Will check D. Dimer CTA ordered Consider metoprolol for rate control Consider cardiology consult (7) Hyperglycemia: Code(s): R73.9 - Hyperglycemia, unspecified Status: Acute Assessment and Plan: Glucose on arrival 290 A1c ordered and pending Could be steroid induced Insulin sliding scale Accu checks AC/HS Trend labs Hypoglycemia protocol (8) Anxiety: Code(s): F41.9 - Anxiety disorder, unspecified Status: Acute Assessment and Plan: Continue home fluoxetine 40mg PO daily Lorazepam 0.5mg PO Q6hr PRN Trend symptoms DS: Summary Hospital Course Hospital Course: Patient is a 60 year old female with a past medical history of COPD, anxiety, and tobacco abuse that presented to the ED with shortness of breath. Since admission patient has not had any wheezes, cough, sputum production. She has been very short of breath, which she associated with running out of oxygen and getting into a hot car. She has been treated with solumedrol IV. Her labs have been stable throughout the visit. She did require more oxygen when she first arrived, but has been titrated to her home settings. She has been able to get up on her own, and has no complaints of chest pain, nausea, vomiting, weakness, fatigue, abdominal pain, cough, or numbness and tingling. She has been able to eat. Her biggest complaint is her anxiety, which she has been treated with ativan 0.5 Q6hr PRN. This really did seem to help her as she states that she is in constant focus of
--- NOTE | 2021-07-12 16:23 | HOMEO2EVAL ---
Evaluation was performed at [facility] Home Oxygen Evaluation RC: Home Oxygen (O2) Evaluation Start: 07/12/21 15:40 Freq: ONCE Status: Active Protocol: RPE Activity Type Activity Date Activity User E-Sign Co-Sign Detail Recorded Client Recorded Date Recorded By Document 07/12/21 16:00 PRATIBHA [email or web address] 07/12/21 16:23 KLA Document 07/12/21 16:01 PRATIBHA [email or web address] 07/12/21 16:23 KLA Document 07/12/21 16:05 PRATIBHA [email or web address] 07/12/21 16:23 KLA Document 07/12/21 16:10 PRATIBHA [email or web address] 07/12/21 16:23 KLA 07/12/21 07/12/21 07/12/21 16:00 16:01 16:05 Home O2 Evaluation Test Phase Resting Resting Exercise Oxygen Delivery Room Air Nasal Cannula Nasal Cannula Oxygen Flow Rate (L/min) 2 2 Pulse Oximetry (90-100 %) 88 L 95 93 Pulse Rate (60-100 beats/min) 100 100 101 H Treatment Charges O2 Evaluation - Inpatient 07/12/21 16:10 Home O2 Evaluation Test Phase Resting Oxygen Delivery Nasal Cannula Oxygen Flow Rate (L/min) 2 Pulse Oximetry (90-100 %) 95 Pulse Rate (60-100 beats/min) 98 Treatment Charges
--- NOTE | 2021-07-12 16:23 | PCRCNOTE ---
Home oxygen evaluation complete. No change in current home oxygen need of 2 liters per minute continuously. Patient already has oxygen set-up at home.
== END 2021-07-12 17:20 | disposition home or self-care (01) | DRG 202 ==
LOC: ANHED 21:30 → ANH3MEDSUR 07-11 06:44
PROVIDERS: Nurse Practitioner; Admitting Provider Internal Medicine; Emergency Provider Emergency Medicine; Visit Provider Internal Medicine
DX: J98.01 Acute bronchospasm (principal); J96.21 Acute and chronic respiratory failure with hypoxia; Z20.822 Contact with and (suspected) exposure to COVID-19; J44.9 Chronic obstructive pulmonary disease, unspecified; Z99.81 Dependence on supplemental oxygen; R00.0 Tachycardia, unspecified; R73.9 Hyperglycemia, unspecified; F41.9 Anxiety disorder, unspecified; Z79.899 Other long term (current) drug therapy; Z87.891 Personal history of nicotine dependence
CPT/HCPCS: 36415; 36600; 71045; 71275; 80048; 80053; 82805; 82948; 83036; 83735; 83880; 84484; 85025; 85380; 93005; 94618; 94640; 96365; 96375; 99285; A9270; C9803; J0696; J1100; J1650; J2920; J7120; Q9967; U0003; U0005

== ENCOUNTER 2022-01-23 15:20 | Emergency (ER) | payer MEDICARE, MEDICAID, SELFPAY ==
--- NOTE | ~2022-01-23 | XR_ITS ---
XR chest 1V portable DATE: 01/23/2022 16:12 INDICATION: Chest tightness, dyspnea. History of COPD, coronary artery disease. Smoker. TECHNIQUE: Portable upright AP chest on 01/23/2022 at 1544 hours COMPARISON: 07/12/2021 portable AP chest at 0952 hours FINDINGS: There is bilateral hyperinflation and relative flattening of the diaphragm, consistent with history of COPD. No pulmonary infiltrate or consolidation, pulmonary vascular congestion, pleural ef fusion or pneumothorax is detected. No hilar or mediastinal enlargement. Normal heart size. Diffuse osteopenia. IMPRESSION: COPD; no active cardiopulmonary disease Reviewed, dictated and finalized at location A.
[2022-01-23 15:22] VITALS: BP 122/100; PULSE 97; RESP 20; TEMP 36.2; O2SAT 91
--- NOTE | 2022-01-23 15:25 | ECG_ITS ---
Measurements Intervals [place] Rate: 100 P: 85 CA: 119 QRS: 80 QRSD: 88 T: 89 QT: 318 QTc: 410 Interpretive Statements SINUS TACHYCARDIA WITH SHORT CA INTERVAL NONSPECIFIC ST & T-WAVE ABNORMALITY APCS NONSPECIFIC T-WAVE CHANGES BASELINE ARTIFACT COMPARED TO ECG 07/10/2021 19:16:46 THE RATE IS SLOWER Electronically Signed On 01-23-2022 18:59:55 CDT by Mckayla Fernando M.D.
[2022-01-23 15:41] LABS: Basophils Percent Auto 0.3 % (0.2-1.2); Eosinophils Percent Auto 0.3 % (0-4.4); Hematocrit 45.2 % (37.0-47.0); Hemoglobin 14.6 g/dL (12.0-15.0); Immature Granulocyte Absolute 0.05 K/mm3 (0.00-0.031); Immature Granulocyte Percent A 0.5 % (0-0.5); Lymphocytes Percent Auto 15.6 % (18.3-44.2); Mean Corpuscular HGB Conc 32.3 g/dl (32-36); Mean Corpuscular Hemoglobin 31.3 pg (26-34); Mean Corpuscular Volume 96.8 fl (80-100); Mean Platelet Volume 8.3 fl (7.4-10.4); Monocytes Absolute Auto 0.5 K/mm3 (0.1-0.6); Monocytes Percent Auto 4.6 % (2.6-8.5); Neutrophils Absolute Auto 8.6 K/mm3 (1.3-6.7); Neutrophils Percent Auto 78.7 % (45.5-73.1); Platelet Count Result 400 k/mm3 (150-375); Red Blood Count 4.67 M/mm3 (4.2-5.4); Red Cell Distribution Width 13.2 % (11.5-14.5); White Blood Count 10.9 K/mm3 (4.5-10.0)
[2022-01-23 15:45] VITALS: PULSE 91
[2022-01-23 15:46] VITALS: O2SAT 92
--- NOTE | 2022-01-23 15:46 | ED.SOB ---
HPI - SOB/Dyspnea General Chief Complaint: Shortness of Breath/Dyspnea Stated Complaint: sob Time Seen by Provider: 01/23/22 15:23 Source: patient History of Present Illness HPI Narrative: Patient presents with shortness of breath. She has a longstanding history of of COPD and is a chronic 2 L oxygen requirement at home. She is been feeling short of breath for approximately the past 2 weeks. She did see her furnace caretaker and has been on steroids for symptoms have not improved she was here during chest x-ray but was feeling worse so she came to the ER for evaluation. Reports increased cough from her baseline over the past 2 weeks. Family member also reports that they both came down with a cold approximately 2 weeks ago but hers has not resolved. She denies any focal areas of pain such as chest pain or abdominal pain she denies any continuation of fevers. Related Data Home Medications Medication Instructions Recorded Confirmed Airborne Gummy 4 tablet PO DAILY 07/10/21 12/18/21 Allergies Allergy/AdvReac Type Severity Reaction Status Date / Time No Known Allergies Allergy Verified 12/18/21 14:09 Review of Systems Review of Systems: CONSTITUTIONAL: Denies fever, chills, or sweats. EYES: Denies visual changes, redness, or discharge. ENT: Denies rhinorrhea, congestion, sore throat, or otalgia. CARDIOVASCULAR: Denies chest pain, palpitations, or edema. RESPIRATORY: Reports shortness of breath and cough GASTROINTESTINAL: Denies abdominal pain, nausea, vomiting, or diarrhea. GENITOURINARY: Denies dysuria or hematuria. SKIN: Denies rash or itching. MUSCULOSKELETAL: Denies back pain, joint pain, or myalgia. NEUROLOGIC: Denies headache, numbness, dizziness, or weakness. PSYCHIATRIC: Denies anxiety or depression. All systems reviewed & are unremarkable except as noted in HPI and below PMFSH Past Medical History Medical History Anxiety COPD, severe Family history of early CAD History of tobacco use Hypoxia Laryngitis Family History Family History Father Family history of cardiovascular disease Acute myocardial infarction, Onset Age: 60 Sibling Family history of cardiovascular disease Acute myocardial infarction, Onset Age: 44 Cerebrovascular accident Diabetes mellitus Mother Family history of malignant neoplasm Family history of malignant neoplasm of breast in first degree relative, Onset Age: 74 Cerebrovascular accident Social History Social History Smoking packs per day: 2 Smoking cigarettes per day: 40.0 Years smoked: 33 Smoking pack-years: 66.00 Smoking status: Former smoker Tobacco type: cigarettes Second hand tobacco smoke exposure: No Smoking end date: 10/19/08 Alcohol intake: current Drinks per week: 4 Substance use type: does not use Gender identity (if verbalized by the patient): Female Spiritual care concerns: No Exam Narrative: GENERAL: Well-appearing, well-nourished, and in no acute distress. HEAD: Normocephalic, atraumatic. EYES: PERRLA and EOMI. ENT: Nares clear, no rhinorrhea or epistaxis. Mucous membranes moist. NECK: Supple. No masses. No JVD CHEST: Diminished aeration in all lung kothari HEART: Regular rate and rhythm. No murmur heard. Normal peripheral pulses. ABDOMEN: Soft, nontender, nondistended, normal active bowel sounds. EXTREMITIES: Normal range of motion. No edema. SKIN: Warm, dry, no rash. NEURO: No focal deficits. Alert and oriented x3. PSYCH: Normal mood and affect. Course Reevaluation(s) Reevaluation #1: Patient reports feeling much improved after DuoNeb therapy. She feels back to her baseline shortness of breath and feels like she can manage her symptoms at home we will give patient a steroid taper and Z-Sathish and have her follow-up with furnace caretaker. Date: 01/23/22 Time: 1
[2022-01-23 15:51] LABS: Alanine Aminotransferase 34 U/L (4-35); Albumin Level 4.4 g/dL (3.5-5.1); Alkaline Phosphatase 74 U/L (38-126); Anion Gap 9 mmol/L (8-16); Aspartate Amino Transferase 29 U/L (14-36); Bilirubin,Total 0.6 mg/dL (0.2-1.3); Blood Urea Nitrogen 11 mg/dL (7-17); Carbon Dioxide 26 mmol/L (22-30); Chloride 101 mmol/L (98-107); Estimated CRCL calculation 83 ml/min; Estimated Glomerular Filt Rate > 60; Glucose 115 mg/dL (65-110); Potassium 3.9 mmol/L (3.4-5.0); Sodium 136 mmol/L (137-145)
[2022-01-23] MEDS: IPRATROPIUM BR 0.02% INH SOLN 0.5 MG/2.5 ML VIAL 1.5 MG INHALATION (16:04)
[2022-01-23] MEDS: ALBUTEROL SULFATE NEB 2.5 MG/0.5 ML INH 15 MG INHALATION (16:05)
[2022-01-23 16:15] VITALS: PULSE 90; RESP 15; O2SAT 100
[2022-01-23] MEDS: methylPREDNISolone SOD SUCC 125 MG VIAL IV PUSH (16:15)
[2022-01-23 16:21] LABS: Base Excess ABG 0.8 mEq/l (+/-2.0); Fractional Inspired Oxygen 32 %; HCO3 ABG 25.7 mEq/l (22.0-26.0); Oxygen Content ABG 19.3 %vol (16.0-22.0); Oxyhemoglobin 95.9 % THb (90.0-100.0); PCO2 ABG 41.8 mmHg (35.0-45.0); PO2 ABG 91.3 mmHg (80.0-100.0); PO2 FiO2 Ratio Arterial Blood 2.85 %; Total Hemoglobin 14.3 g/dL (12.0-18.0); pH ABG 7.406 (7.350-7.450)
[2022-01-23 16:23] LABS: Device NASAL CANNULA; Site Drawn LEFT BRACHIAL
[2022-01-23 16:24] VITALS: PULSE 98; RESP 20
[2022-01-23 17:09] VITALS: BP 139/88; PULSE 96; RESP 17; O2SAT 100
== END 2022-01-23 17:20 | disposition home or self-care (01) ==
PROVIDERS: Emergency Provider Emergency Medicine
DX: J44.1 Chronic obstructive pulmonary disease with (acute) exacerbation (principal); Z99.81 Dependence on supplemental oxygen; Z87.891 Personal history of nicotine dependence; R00.0 Tachycardia, unspecified; R94.31 Abnormal electrocardiogram [ECG] [EKG]
CPT/HCPCS: 36415; 36600; 71045; 80053; 82805; 85025; 93005; 94640; 96374; 99284; J2930

== ENCOUNTER 2022-07-28 14:07 | Outpatient (CLI) | payer MEDICARE, MEDICAID, SELFPAY ==
--- NOTE | ~2022-07-28 | CT_ITS ---
EXAMINATION: CT lung screening DATE: 07/28/2022 14:26 INDICATION: Annual ct lung screening TECHNIQUE: Computed tomography (CT) of the chest was performed without intravenous contrast. Addition al 3D reconstructions utilizing coronal maximum intensity projection (MIP) were performed. Automated exposure control and iterative reconstruction technique were employed. The dose-length product was 74 .08 mGy-cm. COMPARISON: 07/11/2021 FINDINGS: Moderate emphysema. Mild linear discoid atelectasis in the lingula, right middle and lower lobes. No suspicious pulmonary nodules, pneumonia, pulmonary edema or pleural effusion. Heart size is normal. A therosclerotic coronary artery calcification. No pericardial effusion. Thoracic aorta is normal in ca liber. No pathologically enlarged thoracic lymphadenopathy. Mild thoracic spondylosis. Several Schmor l's nodes in the lower thoracic and upper lumbar spine. Chronic appearing mild anterior wedging at T1 1-L1. IMPRESSION: 1. . Lung-RADS category 2: Benign appearance or behavior. Continue annual screening with noncontrast low-dose chest CT in 12 months. Reviewed, dictated and finalized at location B. IMPRESSION: 1. . Lung-RADS category 2: Benign appearance or behavior. Continue annual scree janine with noncontrast low-dose chest CT in 12 months.
== END 2022-07-28 14:08 | disposition home or self-care (01) ==
PROVIDERS: Visit Provider Physician Assistant
DX: Z12.2 Encounter for screening for malignant neoplasm of respiratory organs (principal); Z87.891 Personal history of nicotine dependence
CPT/HCPCS: 71271

== ENCOUNTER 2022-12-24 08:45 | Outpatient (CLI) | payer MEDICARE, MEDICAID, SELFPAY ==
[2022-12-24 09:20] VITALS: PULSE 94; O2SAT 95
[2022-12-24 09:25] VITALS: PULSE 118; O2SAT 87
[2022-12-24 09:30] VITALS: PULSE 119; O2SAT 88
[2022-12-24 09:35] VITALS: PULSE 120; O2SAT 91
[2022-12-24 09:45] VITALS: PULSE 96; O2SAT 95
--- NOTE | 2022-12-24 09:47 | HOMEO2EVAL ---
Evaluation was performed at [facility] Home Oxygen Evaluation RC: Home Oxygen (O2) Evaluation Start: 12/24/22 09:44 Freq: Status: Active Protocol: RPE Activity Type Activity Date Activity User E-sign Co-sign Detail Recorded Client Recorded Date Recorded By Document 12/24/22 09:20 DJO [email or web address] 12/24/22 09:46 DJO Document 12/24/22 09:25 DJO [email or web address] 12/24/22 09:46 DJO Document 12/24/22 09:30 DJO [email or web address] 12/24/22 09:46 DJO Document 12/24/22 09:35 DJO [email or web address] 12/24/22 09:46 DJO Document 12/24/22 09:45 DJO [email or web address] 12/24/22 09:46 DJO 12/24/22 12/24/22 12/24/22 09:20 09:25 09:30 Home O2 Evaluation [Oxygen] -Test Phase Resting Exercise Exercise -Oxygen Delivery Room Air Room Air Nasal Cannula -Oxygen Flow Rate (L/min) 1 [Pulse Oximetry] -Pulse Oximetry (90-100 %) 95 87 L 88 L [Pulse Rate] -Pulse Rate (60-100 beats/min) 94 118 H 119 H [Evaluation] -Activity Tolerance [Charges] -Treatment Charges O2 Evaluation - Outpatient 12/24/22 12/24/22 09:35 09:45 Home O2 Evaluation [Oxygen] -Test Phase Exercise Resting -Oxygen Delivery Nasal Cannula Room Air -Oxygen Flow Rate (L/min) 2 [Pulse Oximetry] -Pulse Oximetry (90-100 %) 91 95 [Pulse Rate] -Pulse Rate (60-100 beats/min) 120 H 96 [Evaluation] -Activity Tolerance Good [Charges] -Treatment Charges
--- NOTE | 2022-12-24 10:19 | PCRCNOTE ---
Patient unable to preform PFT due to severe anxiety. Doctor notified.
== END 2022-12-24 08:46 | disposition home or self-care (01) ==
LOC: ANHPFT 08:47
PROVIDERS: Visit Provider Physician Assistant
DX: R09.02 Hypoxemia (principal)
CPT/HCPCS: 94060; 94618; 94726; 94729

== ENCOUNTER 2023-02-27 13:07 | Outpatient (CLI) | payer MEDICARE, MEDICAID, SELFPAY ==
--- NOTE | 2023-02-20 11:19 | PCRCNOTE ---
See note on PFT test report. Pt was in for test in December,. Unable to complete. SOB and anxiety. Came back today to try again. Pt completed spirometry pre and post. Unable to complete any more testing today. Patient is unable to complete full PFT tests. Multiple attempts made.
--- NOTE | 2023-02-20 12:26 | P.PCNPFT_ITS ---
PFT Procedure Performed PFT Procedure Performed Spirometry with Pre/Post Bronchodilator Flow Vol Loop PFT Interpretation This is a pulmonary function test with pre and post-bronchodilator spirometry. The test was performed and results interpreted in accordance with the 2019 and 2005 ATS/ERS Task Force guidelines respectively using the Global Lung Function Initiative-2012 reference equations. Patient demonstrated good effort and cooperation. Reproducibility criteria were met. The quality of the pre bron chodilator spirometry maneuver was Grade B and post bronchodilator spirometry maneuver was Grade B. Of note the patient was unable to perform PFTs in December of 2022 due to shortness of breath and anxiety. PFT's were reordered for 02/20/2023 and pre and post bronchodilator spirometry was performed but due to shortness of breath and anxiety plethysmography and DLCO were unable to be completed. Findings: Spirometry: There is decreased maximal expiratory airflow at all lung volumes with concave expiratory flow tracing. The contour the inspiratory flow tracing is normal. The pre bronchodilator FVC is 1.48 L, 48% predicted. The pre bronchodilator FEV1 is 0.51 L, 21% predicted. The pre bronchodilator FEV1: FVC ratio is 34%. The post bronchodilator FVC is 1.66 L, representing 180 mL in crease which corresponds to a 13% increase. The post bronchodilator FEV1 is 0.56 L, representing an 11% increase. The post bronchodilator FEV1: FVC ratio is 34%. Impression: There is a very severe obstructive abnormality without significant improvement after inhaling a single dose of albuterol as the absolute increase in FVC was less than 200 mL. A concurrent restrictive abnormality cannot be excluded as the patient could not perform plethysmography. There are no prior studies for comparison
== END 2023-02-27 13:08 | disposition home or self-care (01) ==
PROVIDERS: PCP Internal Medicine Critical Care Medicine; Visit Provider Physician Assistant
DX: J44.9 Chronic obstructive pulmonary disease, unspecified (principal); R94.2 Abnormal results of pulmonary function studies
CPT/HCPCS: 94060

== ENCOUNTER 2023-05-29 12:53 | Outpatient (CLI) | payer OTHER, SELFPAY ==
--- NOTE | 2023-06-01 17:07 | WPDSIXMINUTE ---
Six Minute Walk Procedure Procedure Performed Pulmonary Stress Test (6 min walk) Six Minute Walk Six Minute Walk: This is a 6 minute walk test. The test was performed and interpreted in accordance with the 2014 ERS/ATS task force guidelines. Of note the Testing was performed on 2 L nasal cannula and the patient stopped the testing at 4 minutes and 30 seconds due to severe shortness of breath. Findings: The patient's resting 2 L nasal cannula oxygen saturation measured by pulse oximetry was 94% and heart rate was 93 bpm. Patient ambulated for 122 meters and oxygen saturation remained 92 to 94%. Heart rate at the end of the study was 109 bpm. The patient maintained adequate saturations on 2 L nasal cannula at rest and with ambulation. There are no prior studies for comparison.
== END 2023-05-29 12:54 | disposition home or self-care (01) ==
LOC: ANHPFT 12:54
PROVIDERS: PCP Internal Medicine Critical Care Medicine; Visit Provider Internal Medicine Critical Care Medicine
DX: J44.9 Chronic obstructive pulmonary disease, unspecified (principal)
CPT/HCPCS: 94618

== ENCOUNTER 2023-07-24 13:30 | Outpatient (RCR) | payer MEDICARE, OTHER, MEDICAID, SELFPAY ==
[2023-03-27 15:48] VITALS: PULSE 105
== END 2023-07-24 23:59 | disposition home or self-care (01) ==
LOC: ANHCPREHAB 13:30
PROVIDERS: PCP Internal Medicine Critical Care Medicine; Visit Provider Internal Medicine Critical Care Medicine
DX: J44.9 Chronic obstructive pulmonary disease, unspecified (principal)
CPT/HCPCS: 94625

== ENCOUNTER 2023-08-03 14:38 | Outpatient (CLI) | payer OTHER, SELFPAY ==
--- NOTE | ~2023-08-03 | CT_ITS ---
EXAMINATION:CT lung screening DATE: 08/03/2023 15:00 INDICATION: Personal history of nicotine dependence. Smoker who quit 14 years ago with 60 pack year h istory. TECHNIQUE: Computed tomography (CT) of the chest was performed without intravenous contrast. Automate d exposure control and iterative reconstruction technique were employed. The dose-length product (DLP ) was 84.08 mGy-cm. COMPARISON: Chest CT 07/28/2022 FINDINGS: There is moderate emphysema. There is mild atelectasis bilaterally. No pleural effusion. Th e heart size is normal. There are coronary artery calcifications. No pericardial effusion. There is m ild thoracic spondylosis. There is mild chronic anterior wedging of multiple vertebral bodies. IMPRESSION: 1. Lung-RADS category 1: Negative. Reviewed, dictated and finalized at location E.
== END 2023-08-03 14:39 | disposition home or self-care (01) ==
PROVIDERS: Visit Provider Internal Medicine Critical Care Medicine
DX: Z12.2 Encounter for screening for malignant neoplasm of respiratory organs (principal); Z87.891 Personal history of nicotine dependence
CPT/HCPCS: 71271

== ENCOUNTER 2023-12-01 13:30 | Outpatient (RCR) | payer OTHER, SELFPAY ==
[2023-07-26 00:02] VITALS: PULSE 105
== END 2023-12-01 23:59 | disposition home or self-care (01) ==
LOC: ANHCPREHAB 13:30
PROVIDERS: Visit Provider Internal Medicine Critical Care Medicine
DX: J44.9 Chronic obstructive pulmonary disease, unspecified (principal)
CPT/HCPCS: 94625

== ENCOUNTER 2023-12-08 13:45 | Outpatient (RCR) | payer OTHER, SELFPAY | END 2024-03-28 11:37 | disposition home or self-care (01) | LOC: ANHCPREHAB 13:45 | PROVIDERS: Visit Provider Internal Medicine Critical Care Medicine | DX: J44.9 Chronic obstructive pulmonary disease, unspecified (principal) | CPT/HCPCS: 94625 ==

== ENCOUNTER 2024-06-03 11:41 | Emergency (ER) | payer MEDICARE, SELFPAY ==
[2024-06-03] VITALS (34 sets, daily range): BP systolic 110–160; BP diastolic 76–128; PULSE 68–117; RESP 15–36; TEMP 36.4–37.1; O2SAT 87–100
--- NOTE | ~2024-06-03 | XR_ITS ---
XR chest 1V portable Ordering provider: Deniz Waller MD History: 63 years Female with . shortness of breath . Comparison: January 23, 2022 FINDINGS: MEDIASTINUM: The cardiac silhouette is not enlarged. LUNGS: No infiltrates, effusions or pneumothorax. Emphysematous changes of the lungs. OTHER: No free air under the diaphragm. IMPRESSION: No acute cardiopulmonary pathology. Reviewed, dictated and finalized at location A.
--- NOTE | 2024-06-03 11:51 | ECG_ITS ---
Test Date: 2024-06-03 12:01:05 Measurements Intervals [place] Rate: 113 P: 87 WI: 106 QRS: 82 QRSD: 92 T: 50 QT: 301 QTc: 414 Interpretive Statements POOR ECG QUALITY BECAUSE OF BASELINE ARTIFACT SINUS TACHYCARDIA WITH SHORT WI INTERVAL RIGHT ATRIAL ENLARGEMENT NONSPECIFIC ST & T-WAVE ABNORMALITY ABNORMAL RHYTHM ECG No previous ECG available for comparison Electronically Signed On 06-03-2024 15:10:31 CDT by Carlos Manuel Chaidez M.D.
[2024-06-03 12:25] LABS: Basophils Percent Auto 0.2 % (0.2-1.2); Eosinophils Absolute Auto 0.2 K/mm3 (0-0.3); Eosinophils Percent Auto 1.2 % (0-4.4); Hematocrit 45.9 % (37.0-47.0); Hemoglobin 15.4 g/dL (12.0-15.0); Immature Granulocyte Absolute 0.04 K/mm3 (0.00-0.031); Immature Granulocyte Percent A 0.3 % (0-0.5); Lymphocytes Absolute Auto 1.76 K/mm3 (0.9-3.2); Lymphocytes Percent Auto 13.9 % (18.3-44.2); Mean Corpuscular HGB Conc 33.6 g/dl (32-36); Mean Corpuscular Hemoglobin 31.4 pg (26-34); Mean Corpuscular Volume 93.7 fl (80-100); Mean Platelet Volume 8.7 fl (7.4-10.4); Monocytes Absolute Auto 0.7 K/mm3 (0.1-0.6); Monocytes Percent Auto 5.5 % (2.6-8.5); Neutrophils Percent Auto 78.9 % (45.5-73.1); Platelet Count Result 336 k/mm3 (150-375); Red Cell Distribution Width 12.1 % (11.5-14.5); White Blood Count 12.7 K/mm3 (4.5-10.0)
[2024-06-03 12:34] LABS: Alanine Aminotransferase 18 U/L (6-35); Albumin Level 4.3 g/dL (3.5-5.1); Alkaline Phosphatase 67 U/L (38-126); Anion Gap 11 mmol/L (4-12); Aspartate Amino Transferase 21 U/L (14-36); Bilirubin,Total 0.6 mg/dL (0.2-1.3); Blood Urea Nitrogen 17 mg/dL (7-17); Calcium 9.1 mg/dL (8.4-10.2); Carbon Dioxide 23 mmol/L (22-30); Chloride 101 mmol/L (98-107); Estimated CRCL calculation 69 ml/min; Estimated Glomerular Filt Rate > 60; Glucose 139 mg/dL (65-110); Potassium 4.5 mmol/L (3.4-5.0); Sodium 135 mmol/L (137-145)
--- NOTE | 2024-06-03 13:06 | ECG_ITS ---
Test Date: 2024-06-03 13:10:52 Measurements Intervals [place] Rate: 110 P: 81 MO: 115 QRS: 75 QRSD: 82 T: 60 QT: 302 QTc: 409 Interpretive Statements POOR ECG QUALITY BECAUSE BASELINE ARTIFACT SINUS TACHYCARDIA WITH SHORT MO INTERVAL POSSIBLE RIGHT ATRIAL ENLARGEMENT [0.25mV P WAVE] NONSPECIFIC ST AND T ABNORMALITY ABNORMAL ECG Compared to ECG 06/03/2024 12:01:05 NO DIFFERENCE Electronically Signed On 06-03-2024 15:11:53 CDT by Carlos Manuel Chaidez M.D.
[2024-06-03 13:32] LABS: Troponin I < 0.012 ng/mL (0.000-0.034)
--- NOTE | 2024-06-03 14:58 | ED.GENADULT ---
HPI - General Adult General Chief complaint: Shortness of Breath/Dyspnea Stated complaint: SOB for a month Time Seen by Provider: 06/03/24 13:23 History of Present Illness HPI narrative: This is a 63-year-old female with severe COPD on 3 L nasal cannula and anxiety presenting for shortness of breath x1 month. Patient is being treated by her primary care physician with a course of antibiotics and steroids 1 month ago. That improved her condition but then she had a family member passed which caused her breathing to worsen and she requested another course of steroids and antibiotics that were provided. 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 There is a significant component of anxiety to her symptoms. She denies fever chills chest pain lower extremity edema nausea vomiting or diarrhea. Related Data Home Medications Medication Instructions Recorded Confirmed [id number] C 250 4 tablet PO DAILY 07/10/21 02/17/24 mg-herbal no.124 11.66 mg chewable tablet (Airborne Gummy) buspirone 5 mg tablet 5 mg PO BID 08/03/23 02/17/24 Allergies Allergy/AdvReac Type Severity Reaction Status Date / Time No Known Allergies Allergy Verified 02/17/24 10:40 [facility] Past Medical History Medical History Anxiety COPD, severe Family history of early CAD History of tobacco use Hypoxia Laryngitis Family History Family History Father Family history of cardiovascular disease Acute myocardial infarction, Onset Age: 60 Sibling Family history of cardiovascular disease Acute myocardial infarction, Onset Age: 44 Cerebrovascular accident Diabetes mellitus Mother Family history of malignant neoplasm Family history of malignant neoplasm of breast in first degree relative, Onset Age: 74 Cerebrovascular accident Social History Social History Smoking packs per day: 2 Smoking cigarettes per day: 40.0 Years smoked: 30 Smoking pack-years: 60.00 Smoking status: Former smoker Tobacco type: cigarettes Second hand tobacco smoke exposure: No Smoking end date: 10/19/08 Alcohol intake: current Drinks per week: 4 Substance use type: does not use Gender identity (if verbalized by the patient): Female Spiritual care concerns: No Exam Narrative: APPEARANCE: Patient appears anxious Head: atraumatic. EYES: EOMI, NOSE: Atraumatic NECK: Trachea midline RESPIRATORY: Slightly tachypneic, decreased lung sounds in all kothari, CARDIOVASCULAR: RRR,no peripheral edema ABDOMINAL: Non-distended Soft non-tender MUSCULOSKELETAl: No obvious deformities NEURO: Alert. Moving 4/4 extremities SKIN:: Warm, dry. Normal color PSYCHIATRIC: anxious Course Vital Signs Vital signs: Vital Signs Temperature 97.5 F L 06/03/24 11:45 Pulse Rate 110 H 06/03/24 11:45 Respiratory Rate 22 H 06/03/24 11:45 Blood Pressure 151/103 H 06/03/24 11:45 Pulse Oximetry 98 06/03/24 11:45 Oxygen Delivery Nasal Cannula 06/03/24 11:45 Oxygen Flow Rate 3 06/03/24 11:45 Temperature 98.7 F 06/03/24 14:46 Pulse Rate 114 H 06/03/24 16:00 Respiratory Rate 20 06/03/24 16:00 Blood Pressure 135/105 H 06/03/24 14:31 Pulse Oximetry 98 06/03/24 14:46 Oxygen Delivery Nasal Cannula 06/03/24 14:19 Oxygen Flow Rate 3 06/03/24 14:19 Medical Decision Making MDM Narrative Medical decision making narrative: -Course: 63-year-old female with COPD and severe anxiety presenting with anxiety and shortness of breath. Patient was very anxious and tremulous on initial arrival. She was treated for COPD and other causes of dyspnea were explored and all negative. On deeper chart review there is a note from Feb 17 2024 from her pulmono
[2024-06-03] MEDS: IPRATROPIUM 0.5 MG/ALBUTEROL SULFATE 2.5 MG AMPUL.NEB 3 ML 12 ML INHALATION (15:10)
[2024-06-03] MEDS: MAGNESIUM SULF 2 GM/WATER 50ML 2 GM/50 ML BAG IVPB (15:15)
[2024-06-03] MEDS: dexAMETHasone SOD PHOS INJ 10 MG/ML 1 ML VIAL IV PUSH (15:15)
[2024-06-03] MEDS: diazePAM (*CRX) 5 MG TABLET PO (15:15)
[2024-06-03] MEDS: SODIUM CHLORIDE 0.9% IV 1,000 ML 999 ML IV CONT (15:16)
[2024-06-03 16:49] LABS: NT Pro B Type Natriuretic Pept 32 pg/mL (19.9-100)
[2024-06-03 17:09] LABS: Base Excess ABG -5.3 mEq/l (+/-2.0); Fractional Inspired Oxygen 32 %; HCO3 ABG 20.4 mEq/l (22.0-26.0); Oxygen Content ABG 19.5 %vol (16.0-22.0); Oxygen Saturation ABG 96.1 % (95.0-100.0); Oxyhemoglobin 95.8 % THb (90.0-100.0); PCO2 ABG 40.6 mmHg (35.0-45.0); PO2 ABG 88.7 mmHg (80.0-100.0); PO2 FiO2 Ratio Arterial Blood 2.77 %; Total Hemoglobin 14.4 g/dL (12.0-18.0); pH ABG 7.319 (7.350-7.450)
[2024-06-03 17:11] LABS: Device NASAL CANNULA; Site Drawn LEFT BRACHIAL
[2024-06-03 17:22] LABS: D Dimer < 0.27 ug/mL (<0.48)
[2024-06-03 17:44] LABS: Influenza A QL RT-PCR Negative (Negative); Influenza B QL RT-PCR Negative (Negative); RSV RNA, RT-PCR Negative (Negative); SARS-CoV-2 RNA PCR Negative (Negative)
[2024-06-03] MEDS: diazePAM INJ (*CRX) 10 MG/2 ML SYRINGE IV PUSH (18:52)
== END 2024-06-03 19:24 | disposition home or self-care (01) ==
PROVIDERS: Emergency Medicine; Emergency Provider Emergency Medicine
DX: J44.9 Chronic obstructive pulmonary disease, unspecified (principal); Z99.81 Dependence on supplemental oxygen; F41.9 Anxiety disorder, unspecified; Z87.891 Personal history of nicotine dependence; R00.0 Tachycardia, unspecified; R94.31 Abnormal electrocardiogram [ECG] [EKG]
CPT/HCPCS: 36415; 36600; 71045; 80053; 82805; 83880; 84484; 85025; 85380; 87637; 93005; 94640; 96365; 96366; 96375; 99284; A9270; J1100; J3360; J3475; J7030

== ENCOUNTER 2024-09-07 14:00 | Outpatient (CLI) | payer MEDICARE, SELFPAY ==
--- NOTE | ~2024-09-07 | CT_ITS ---
EXAMINATION:CT lung screening DATE: 09/07/2024 15:08 INDICATION: Personal history of nicotine dependence. Smoker who quit 15 years ago with 40 pack year h istory. TECHNIQUE: Computed tomography (CT) of the chest was performed without intravenous contrast. Automate d exposure control and iterative reconstruction technique were employed. The dose-length product (DLP ) was 98.63 mGy-cm. COMPARISON: Chest CT 08/03/2023 FINDINGS: There is moderate emphysema. There is mild atelectasis bilaterally. No pleural effusion. Th e heart size is normal. There are coronary artery calcifications. No pericardial effusion. There is a small sliding hiatal hernia. There is mild thoracic spondylosis. There is mild chronic anterior wedg ing of multiple vertebral bodies. IMPRESSION: 1. Lung-RADS category 1: Negative. Continue annual screening with noncontrast low-dose chest CT in 12 months. Reviewed, dictated and finalized at location A. OTIC PRACTITIONER IMPRESSION: 1. Lung-RADS category 1: Negative. Continue annual screening with noncontrast l ow-dose chest CT in 12 months.
== END 2024-09-07 14:01 | disposition home or self-care (01) ==
PROVIDERS: Visit Provider Physician Assistant
DX: Z12.2 Encounter for screening for malignant neoplasm of respiratory organs (principal)
CPT/HCPCS: 71271